=== PATIENT | female | born 1990 | race Caucasian/White ===

== ENCOUNTER 2018-10-11 06:56 | Emergency (ER) | payer OTHER ==
[2018-10-11 07:01] VITALS: BP 118/78
[2018-10-11] MEDS ORDERED: MECLIZINE HCL 25 MG TABLET PO ONE (07:06)
--- NOTE | 2018-10-11 07:23 | ER Document Report ---
HPI - HPI Time Seen by Provider: 10/11/18 07:20 Pain Level: 3 Notes: Patient is a 27-year-old female with a history of allergies who presents to the ED complaining of nasal congestion and 2 episodes of dizziness this morning. Patient states that she does have vertigo on occasion when she has upper respiratory infections and sinus symptoms. Patient states that the dizziness has since resolved. She does take Claritin once daily. Patient states that pushing on her sinuses actually improve her symptoms. She is otherwise eating and drinking without any difficulties. She is urinating normally. No other concerns or complaints. Denies any headache, fever, head injury, neck pain, changes in vision/speech/mentation/hearing, sore throat, chest pain, palpitations, syncope, cough, shortness of breath, wheeze, dyspnea, abdominal pain, nausea/vomiting/diarrhea, urinary retention, dysuria, hematuria, loss of control of bowel or bladder, numbness/tingling, saddle anesthesia, muscle paralysis/weakness, or rash. - ROS Systems Reviewed and Negative: Yes All other systems reviewed and negative - REPRODUCTIVE Reproductive: DENIES: : Past Medical History - Social History Smoking Status: Never Smoker Family History: Arthritis, CAD, CVA, DM, Hyperlipidemia, Hypertension, Malignancy, Thyroid Disfunction - Immunizations Immunizations up to date: No Hx Diphtheria, Pertussis, Tetanus Vaccination: No Hx Pneumococcal Vaccination: 07/18/14 Vertical Provider Document - CONSTITUTIONAL Agree With Documented VS: Yes Notes: PHYSICAL EXAMINATION: GENERAL: Well-appearing, well-nourished and in no acute distress. A&Ox4. Answers questions appropriately. HEAD: Atraumatic, normocephalic. Non-tender. EYES: Pupils equal round and reactive to light, extraocular movements intact, sclera anicteric, conjunctiva are normal. No nystagmus. vis akbar intact. ENT: EAC clear b/l. TM's intact b/l without erythema, fluid, or perforation. Nares patent and without discharge, mildly inflamed. oropharynx clear without exudates. No tonsilar hypertrophy or erythema. Moist mucous membranes. No sinus tenderness--actually "felt really good." NECK: Normal range of motion, supple without lymphadenopathy. No rigidity/meningismus. No midline tenderness. LUNGS: Breath sounds clear to auscultation bilaterally and equal. No wheezes rales or rhonchi. HEART: Regular rate and rhythm without murmurs, rubs, gallops. ABDOMEN: Soft, nontender, nondistended abdomen. No guarding, no rebound. Normal bowel sounds present. No CVA tenderness bilaterally. Musculoskeletal: Ext's b/l: FROM to passive/active. Strength 5+/5. No deficits noted. No bony tenderness of extremities. Extremities: No cyanosis, clubbing, or edema b/l. Peripheral pulses 2+. Capillary refill less than 2 seconds. NEUROLOGICAL: NIH 0. GCS 15. Cranial nerves grossly intact. Normal speech, normal gait. Normal sensory, motor exams. Reflexes 2+ b/l. ZOË's negative. Pronator drift negative. Heel/felton, finger/nose wnl. Rhomberg neg. PSYCH: Normal mood, normal affect. SKIN: Warm, Dry, normal turgor, no rashes or lesions noted. - INFECTION CONTROL TRAVEL OUTSIDE OF THE [place] IN LAST 30 DAYS: No Course - Re-evaluation Re-evalutation: 10/11/18 07:26 Patient is an afebrile, well-hydrated, 27-year-old female who presents to the ED with acute URI, suspect viral, and the two episodes of vertigo could be related to the URI vs possible labyrinthitis. Vitals are stable. PE is otherwise unremarkable. No labs or imaging warranted at this time based on H&P. Patient has no significant cardiopulmonary or immunocompromised medical conditions. Patient's lungs are clear to auscultation bilaterally without tachycardia, hypoxia, or tachypnea. Patient is tolerating p.o. without any difficulties. Meclizine given PO. Low suspicion for any acute intracranial pathology, menieres, meningitis, sepsis, peritonsillar/pharyngeal abscess, respiratory compromise, severe dehydration, or other emergent systemic condition at this time. Patient is aware this condition can change from initial presentation and she needs to monitor symptoms closely. Conservative measures otherwise for symptoms. Recheck with your PCM in 3-5 days. Return to the ED with any worsening/concerning symptoms otherwise as reviewed in discharge. Patient is in agreement. - Vital Signs Vital signs: Temp Pulse Resp BP Pulse Ox 98.4 F 97 14 118/78 97 10/11/18 06:57 10/11/18 06:57 10/11/18 06:57 10/11/18 06:57 10/11/18 06:57 Discharge - Discharge Clinical Impression: Acute URI Condition: Stable Disposition: HOME, SELF-CARE Instructions: Upper Respiratory Illness ([facility]) Additional Instructions: Maintain adequate fluid intake Take meds as directed tylenol/ibuprofen as needed over the counter cold medication as needed for symptoms (generic Afrin and mucinex with nasal saline rinses)- dramamine/meclizine for dizziness Humidified air may help Wash your hands regularly Wear a mask when coughing F/u: with your PCM in 3-5 days for a recheck Return to the ED with any fever, worsening pain, chest pain, palpitations, syncope, worsening BLAKE, neck pain/stiffness, shortness of breath, wheezing, drooling, trouble swallowing/breathing, abdominal pain, n/v/d, rash, or worsening/concerning symptoms otherwise. Referrals: [facility] [Provider Group] - Follow up as needed [facility] [Provider Group] - Follow up as needed
== END 2018-10-11 07:27 | disposition home or self-care (01) ==
LOC: ER 06:56
DX: J06.9 Acute upper respiratory infection, unspecified (principal); R09.81 Nasal congestion; R42 Dizziness and giddiness
CPT/HCPCS: 99283

== ENCOUNTER 2018-11-28 09:42 | Emergency (ER) | payer OTHER ==
[2018-11-28 09:46] VITALS: BP 145/93
--- NOTE | 2018-11-28 10:19 | ER Document Report ---
HPI - HPI Time Seen by Provider: 11/28/18 10:13 Pain Level: 3 Notes: Patient is a 28-year-old female with no significant past medical history who presents to the emergency department complaining of pain to her right superior auricle began over the last day. Patient states that she woke up with some redness and associated pain with some scant drainage in the crease superiorly this morning. Patient states that she does have an ear piercing in that area, but has not used it in several years. She is otherwise eating and drinking without difficulty. Denies any trauma. No other recent illness. Patient was seen at an urgent care and was apparently sent here for evaluation of possible cauliflower ear. Denies any headache, fever, head injury, neck pain, changes in vision/speech/mentation/hearing, URI, sore throat, chest pain, palpitations, syncope, cough, shortness of breath, wheeze, dyspnea, abdominal pain, nausea/vomiting/diarrhea, urinary retention, dysuria, hematuria, or rash. - ROS Systems Reviewed and Negative: Yes All other systems reviewed and negative - REPRODUCTIVE Reproductive: DENIES: : Past Medical History - Social History Smoking Status: Never Smoker Family History: Arthritis, CAD, CVA, DM, Hyperlipidemia, Hypertension, Malignancy, Thyroid Disfunction Renal/ Medical History: Denies: Hx Peritoneal Dialysis - Immunizations Immunizations up to date: No Hx Diphtheria, Pertussis, Tetanus Vaccination: No Hx Pneumococcal Vaccination: 07/18/14 Vertical Provider Document - CONSTITUTIONAL Agree With Documented VS: Yes Notes: PHYSICAL EXAMINATION: GENERAL: Well-appearing, well-nourished and in no acute distress. HEAD: Atraumatic, normocephalic. EYES: Pupils equal round and reactive to light, extraocular movements intact, sclera anicteric, conjunctiva are normal. ENT: EAC clear b/l. TM's intact b/l without erythema, fluid, or perforation. Rt auricle has mild erythema superiorly without any anatomic changes due to swelling. No hematoma. No abscess. + mild associated tenderness w/o any discharge noted. No streaks or mastoid tenderness. Nares patent and without discharge. oropharynx clear without exudates. No tonsilar hypertrophy or erythema. Moist mucous membranes. No sinus tenderness. NECK: Normal range of motion, supple without lymphadenopathy LUNGS: Breath sounds clear to auscultation bilaterally and equal. No wheezes rales or rhonchi. HEART: Regular rate and rhythm without murmurs, rubs, gallops. Extremities: No cyanosis, clubbing, or edema b/l. Peripheral pulses 2+. Capillary refill less than 3 seconds. NEUROLOGICAL: Cranial nerves grossly intact. Normal speech, normal gait. PSYCH: Normal mood, normal affect. SKIN: see above. - INFECTION CONTROL TRAVEL OUTSIDE OF THE [place] IN LAST 30 DAYS: No Course - Re-evaluation Re-evalutation: 11/28/18 10:16 Patient is an afebrile, well-hydrated, 28-year-old female who presents the emergency department with a mild appearing cellulitis to the right auricle based on her H&P today. Reassured patient that I have no suspicion of cauliflower ear at this time. Vitals are acceptable. PE is otherwise unremarkable. Patient is nontoxic-appearing and is tolerating p.o. without difficulty. Patient has an allergy to Bactrim. I did review antibiotic choice with Dr. Hurd who is in agreement with terrence. Low suspicion for any sepsis, meningitis, severe d ehydration, respiratory compromise, mastoiditis, or other systemic emergent condition at this time. Patient is aware that condition can change from initial presentation and she needs to monitor symptoms closely and seek medical attention with any acute changes. Recheck with your PCM in 3-5 days. Consider consult with ENT. Return to the ED with any other worsening/concerning symptoms. Patient is in agreement. No h/o MRSA. - Vital Signs Vital signs: Temp Pulse Resp BP Pulse Ox 99.2 F 74 16 145/93 H 100 11/28/18 09:45 11/28/18 09:45 11/28/18 09:45 11/28/18 09:45 11/28/18 09:45 Discharge - Discharge Clinical Impression: Ear infection Condition: Stable Disposition: HOME, SELF-CARE Instructions: Doxycycline ([facility]) Additional Instructions: Keep the skin clean Wash with soap and water Tylenol/ibuprofen if needed Triple antibiotic ointment daily Take medication as directed Monitor for any worsening symptoms Recheck with your PCM in 3-5 days Consider consult with ENT for ongoing/worsening symptoms Return to the ED with any worsening symptoms and/or development of fever, headache, chest pain, palpitations, syncope, shortness of breath, trouble breathing, abdominal pain, n/v/d, abscess, purulent discharge, red streaks, worsening swelling, or other worsening symptoms that are concerning to you. Prescriptions: Doxycycline Hyclate 100 mg PO BID #20 capsule Forms: Elevated Blood Pressure, Return to Work Referrals: ADRIANNE CHEATHAM DO [ASSOCIATE] - Follow up as needed
== END 2018-11-28 10:29 | disposition home or self-care (01) ==
LOC: ER 09:42
DX: H60.11 Cellulitis of right external ear (principal); H92.01 Otalgia, right ear
CPT/HCPCS: 99282

== ENCOUNTER 2018-12-24 05:53 | Emergency (ER) | payer OTHER ==
[2018-12-24] MEDS ORDERED: HYDROXYZINE PAMOATE 25 MG CAPSULE (4 CAP/ER DISP) PO PRN (07:14)
--- NOTE | 2018-12-24 07:17 | ER Document Report ---
ED General - General Chief Complaint: Anxiety Stated Complaint: PANIC ATTACKS Time Seen by Provider: 12/24/18 07:01 Mode of Arrival: Ambulatory Information source: Patient Notes: Patient is a 28-year-old female with a history of anxiety who presents to the ER today for not being able to sleep for the past 2 days because her "brain just will not shut off." She states she has a lot of stress going on at work and also has 4 children at home and just feels "overwhelmed." She denies any suicidal or homicidal. She admits to some palpitations and chest tightness, feeling like she is short of breath but states that she has had this feeling with panic attacks before. She states that she never wanted to be on any medication for anxiety so she is never tried anything for panic attacks, never been prescribed anything. She has no cardiac history but admits to family history of cardiac disease. She does not smoke. TRAVEL OUTSIDE OF THE [place] IN LAST 30 DAYS: No - Related Data Allergies/Adverse Reactions: trimethoprim [From Septra] Allergy (Mild, Verified 12/24/18 06:41) benzocaine [From Hurricaine] Adverse Reaction (Severe, Verified 12/24/18 06:41) Swelling of Throat pertussis vaccine,fluid [Pertussis Vaccine,Fluid] Adverse Reaction (Severe, Verified 12/24/18 06:41) Swelling of Throat sulfamethoxazole [From Septra] Adverse Reaction (Severe, Verified 12/24/18 06:41) Swelling of Throat Past Medical History - General Information source: Patient - Social History Smoking Status: Never Smoker Frequency of alcohol use: Occasional Drug Abuse: None Family History: Arthritis, CAD, CVA, DM, Hyperlipidemia, Hypertension, Malignancy, Thyroid Disfunction Patient has suicidal ideation: No Patient has homicidal ideation: No Renal/ Medical History: Denies: Hx Peritoneal Dialysis - Immunizations Immunizations up to date: No Hx Diphtheria, Pertussis, Tetanus Vaccination: No Hx Pneumococcal Vaccination: 07/18/14 Review of Systems - Review of Systems Constitutional: No symptoms reported EENT: No symptoms reported Cardiovascular: No symptoms reported Respiratory: No symptoms reported Gastrointestinal: No symptoms reported Genitourinary: No symptoms reported Female Genitourinary: No symptoms reported Musculoskeletal: No symptoms reported Skin: No symptoms reported Hematologic/Lymphatic: No symptoms reported Neurological/Psychological: See HPI Physical Exam - Vital signs Vitals: Temp Pulse Resp BP Pulse Ox 98.7 F 113 H 22 H 143/96 H 98 12/24/18 05:56 12/24/18 05:56 12/24/18 05:56 12/24/18 05:56 12/24/18 05:56 - Notes Notes: PHYSICAL EXAMINATION: GENERAL: Anxious appearing, but in no acute distress. HEAD: Atraumatic, normocephalic. EYES: Pupils equal round and reactive to light, extraocular movements intact, sclera anicteric, conjunctiva are normal. ENT: Airway patent, ear canals without erythema or foreign body, TMs pearly ferro with good bony landmarks, nares patent, oropharynx clear without exudates. Moist mucous membranes. NECK: Normal range of motion, supple without lymphadenopathy LUNGS: CTAB and equal. No wheezes rales or rhonchi. HEART: Regular rate and rhythm without murmurs ABDOMEN: Soft, no tenderness. No guarding, no rebound BACK: no vertebral tenderness, normal ROM GI/: no CVA tenderness EXTREMITIES: Normal range of motion, no pitting edema. No cyanosis. NEUROLOGICAL: Cranial nerves grossly intact. Normal sensory/motor exams. PSYCH: Normal mood, normal affect. SKIN: Warm, Dry, normal turgor, no rashes or lesions noted Course - Re-evaluation Re-evalutation: 12/24/18 11:11 EKG without evidence of ischemia or abnormal that he, patient will be given Vistaril for her anxiety, she is stable for discharge to follow-up with mental health that she actually has an appointment with on the of this month. - Vital Signs Vital signs: Temp Pulse Resp BP Pulse Ox 98.7 F 88 16 123/74 99 12/24/18 05:56 12/24/18 08:28 12/24/18 08:28 12/24/18 08:28 12/24/18 08:28 Discharge - Discharge Clinical Impression: Anxiety Condition: Stable Disposition: HOME, SELF-CARE Instructions: Anxiety ([facility]) Additional Instructions: Return immediately for any new or worsening symptoms. Follow up with primary care provider, call tomorrow to make followup appointment.
[2018-12-24 08:28] VITALS: BP 123/74
--- NOTE | 2018-12-24 12:35 | EKG REPORT ---
SEVERITY:- NORMAL ECG - SINUS RHYTHM : Confirmed by: Arelis Li MD 24-Dec-2018 12:35:01
== END 2018-12-24 08:28 | disposition home or self-care (01) ==
LOC: ER 05:53
DX: F41.9 Anxiety disorder, unspecified (principal); R00.2 Palpitations; R07.89 Other chest pain; R06.02 Shortness of breath; Z82.49 Family history of ischemic heart disease and other diseases of the circulatory system; Z88.1 Allergy status to other antibiotic agents
CPT/HCPCS: 93005; 99283; 93010; J3490

== ENCOUNTER 2020-06-20 13:25 | Emergency (ER) | payer OTHER ==
--- NOTE | 2020-06-20 13:58 | ER Document Report ---
ED Medical Screen (RME) - General Chief Complaint: High Blood Pressure Stated Complaint: BLOOD PRESSURE ISSUES Time Seen by Provider: 06/20/20 13:43 Mode of Arrival: Ambulatory Information source: Patient Notes: 29-year-old female presented to ED for complaint of elevated blood pressure at the doctor's office. Patient's blood pressure using manual cuff was 142/88 in the right arm. More concerning was her apical pulse was 126. With the pulse ox machine it was also 126. Patient is alert oriented respirations regular nonlabored speaking in full sentences. She states she does feel her pulse jumping in her chest. She is not having pain she can just feel her pulse in her chest. I have greeted and performed a rapid initial assessment of this patient. A comprehensive ED assessment and evaluation of the patient, analysis of test results and completion of medical decision making process will be conducted by an additional ED providers. TRAVEL OUTSIDE OF THE [place] IN LAST 30 DAYS: No - Related Data Allergies/Adverse Reactions: trimethoprim [From Septra] Allergy (Mild, Verified 12/24/18 06:41) benzocaine [From Hurricaine] Adverse Reaction (Severe, Verified 12/24/18 06:41) Swelling of Throat pertussis vaccine,fluid [Pertussis Vaccine,Fluid] Adverse Reaction (Severe, Verified 12/24/18 06:41) Swelling of Throat sulfamethoxazole [From Septra] Adverse Reaction (Severe, Verified 12/24/18 06:41) Swelling of Throat Past Medical History - Social History Chew tobacco use (# tins/day): No Frequency of alcohol use: None Drug Abuse: None Renal/ Medical History: Denies: Hx Peritoneal Dialysis - Immunizations Immunizations up to date: No Hx Diphtheria, Pertussis, Tetanus Vaccination: No Physical Exam - Vital signs Vitals: Temp Pulse Resp BP Pulse Ox 98.1 F 98 16 162/98 H 100 06/20/20 13:31 06/20/20 13:31 06/20/20 13:31 06/20/20 13:31 06/20/20 13:31 Course - Vital Signs Vital signs: Temp Pulse Resp BP Pulse Ox 98.1 F 98 16 162/98 H 100 06/20/20 13:31 06/20/20 13:31 06/20/20 13:31 06/20/20 13:31 06/20/20 13:31
[2020-06-20 14:34] LABS: ABSOLUTE EOSINOPHILS # (AUTO) 0.1 10^3/uL (0.0-0.6); ABSOLUTE MONOCYTES (AUTO) 0.5 10^3/uL (0.1-1.4); ABSOLUTE NEUT (AUTO) 5.1 10^3/uL (1.7-8.2); BASOPHILS % (AUTO) 0.3 % (0-2); EOSINOPHILS % (AUTO) 0.8 % (0-6); HEMATOCRIT 44.4 % (36.0-47.0); HEMOGLOBIN 15.7 g/dL (12.0-15.5); MEAN CORPUSCULAR HGB CONC 35.2 g/dL (32.0-36.0); MEAN CORPUSCULAR VOLUME 91 fl (80-97); MONOCYTES % (AUTO) 6.4 % (3-13); PLATELET COUNT 316 10^3/uL (150-450); RED BLOOD COUNT 4.89 10^6/uL (3.72-5.28); SEGMENTED NEUTROPHILS % (AUTO) 66.5 % (42-78); TOTAL CELLS COUNTED % (AUTO) 100 %; WHITE BLOOD COUNT 7.7 10^3/uL (4.0-10.5)
[2020-06-20 14:54] LABS: ALKALINE PHOSPHATASE 39 U/L (38-126); ANION GAP 11 (5-19); ASPARTATE AMINO TRANSFERASE 24 U/L (14-36); BILIRUBIN,DIRECT 0.4 mg/dL (0.0-0.4); BILIRUBIN,TOTAL 0.5 mg/dL (0.2-1.3); BLOOD UREA NITROGEN 10 mg/dL (7-20); CARBON DIOXIDE 26 mmol/L (22-30); CHLORIDE 102 mmol/L (98-107); CREATINE KINASE 67 U/L (30-135); GLUCOSE 112 mg/dL (75-110); POTASSIUM 4.2 mmol/L (3.6-5.0); TOTAL PROTEIN 8.4 g/dL (6.3-8.2)
[2020-06-20 14:55] LABS: PROTHROMBIN TIME 11.3 SEC (11.4-15.4)
[2020-06-20 14:56] LABS: PARTIAL THROMBOPLASTIN TIME 27.7 SEC (23.5-35.8)
--- NOTE | 2020-06-20 15:07 | ER Document Report ---
ED Medical Screen (RME) - General Chief Complaint: High Blood Pressure Stated Complaint: BLOOD PRESSURE ISSUES Time Seen by Provider: 06/20/20 13:43 Mode of Arrival: Ambulatory Information source: Patient Notes: 06/20/20 13:42 - ED Nursing Note by ALDA AC Num: [id number] : 1990 Patient Age: 29 Pt ambulates into ER today for c/o high blood pressure. Pt states that she went to Urgent care and her bp was elevated 157/127 manual, they advised her to come to the ER. Pt states that she has a family history of hypertension and heart disease. Pt denies any chest pain, headache, dizziness. Pt states that she feels SOB when waking up in the morning as well as palpitations. Pt aaox4, skin warm and dry, respirations e/u, speaking in clear and coherent sentence. Pt noted to have high HR of 126. ED Medical Screen (Mark marks) - General Chief Complaint: High Blood Pressure Stated Complaint: BLOOD PRESSURE ISSUES Time Seen by Provider: 06/20/20 13:43 Mode of Arrival: Ambulatory Information source: Patient Notes: 29-year-old female presented to ED for complaint of elevated blood pressure at the doctor's office. Patient's blood pressure using manual cuff was 142/88 in the right arm. More concerning was her apical pulse was 126. With the pulse ox machine it was also 126. Patient is alert oriented respirations regular nonlabored speaking in full sentences. She states she does feel her pulse jumping in her chest. She is not having pain she can just feel her pulse in her chest. MY NOTES 29-year-old female mother of 3 children ages 5-year-old 7-year-old and 9-year-old all girls at home. Patient reports she been on control Alyacen norethindrone and estradiol for 1 year. Patient noticed several days ago she was having left lateral neck pain associated with a blowing sound in her left ear. She does have a seasonal allergies. She could feel with a blowing associated with her heartbeat. She went to urgent care and they looked in her ear and did not find any ear infection but did notice that she had high blood pr essure and she had tachycardia. Patient has been complaining of dyspnea on exertion after walking 10 feet and taking care of her 3 children. Her mother has a history of PVCs and is on medication and father's has hypertension and on medication. Her sister has Chaya's thyroiditis. She advises she has picked her family well. No one in the family has any history of pulmonary embolism or DVT. TRAVEL OUTSIDE OF THE [place] IN LAST 30 DAYS: No - HPI Onset: Last week Associated Symptoms: Dizzy/lightheaded, Shortness of breath, Other - tachycardia Exacerbated by: Movement, Deep breathing Relieved by: Remaining still Similar symptoms previously: No Recently seen / treated by doctor: No - Related Data Allergies/Adverse Reactions: trimethoprim [From Septra] Allergy (Mild, Verified 12/24/18 06:41) benzocaine [From Hurricaine] Adverse Reaction (Severe, Verified 12/24/18 06:41) Swelling of Throat pertussis vaccine,fluid [Pertussis Vaccine,Fluid] Adverse Reaction (Severe, Verified 12/24/18 06:41) Swelling of Throat sulfamethoxazole [From Junra] Adverse Reaction (Severe, Verified 12/24/18 06:41) Swelling of Throat Past Medical History - General Information source: Patient - Social History Cigarette use (# per day): No Chew tobacco use (# tins/day): No Frequency of alcohol use: None Drug Abuse: None Lives with: Family Family history: Reviewed & Not Pertinent Renal/ Medical History: Denies: Hx Peritoneal Dialysis - Immunizations Immunizations up to date: No Hx Diphtheria, Pertussis, Tetanus Vaccination: No Review of Systems - Review of Systems Constitutional: See HPI, Weakness EENT: See HPI, Ear pain, Sinus pressure Cardiovascular: See HPI, Palpitations, Heart racing, Orthopnea, Dyspnea, Dizziness Respiratory: See HPI, Short of breath Gastrointestinal: No symptoms reported Genitourinary: No symptoms reported Female Genitourinary: No symptoms reported Musculoskeletal: No symptoms reported Skin: No symptoms reported Hematologic/Lymphatic: No symptoms reported Neurological/Psychological: See HPI, Weakness Physical Exam - Vital signs Vitals: Temp Pulse Resp BP Pulse Ox 98.1 F 98 16 162/98 H 100 06/20/20 13:31 06/20/20 13:31 06/20/20 13:31 06/20/20 13:31 06/20/20 13:31 Interpretation: Hypertensive, Tachycardic - HEENT Head: Normocephalic, Atraumatic Eyes: Normal Cornea: Normal Extraocular movements intact: Yes Eyelashes: Normal Pupils: PERRL External canal: Normal Tympanic membrane: Serous effusion - L>R Mucous membranes: Normal Pharynx: Normal Neck: Normal, Other - no bruits - Respiratory Respiratory status: No respiratory distress Chest status: Nontender Breath sounds: Normal Chest palpation: Normal - Cardiovascular Rhythm: Tachycardia Heart sounds: Normal auscultation Murmur: No - Abdominal Inspection: Normal Distension: No distension Bowel sounds: Normal Tenderness: Nontender Organomegaly: No organomegaly - Rectal Hemorrhoids: Other - deferred - Genitourinary Bimanuel exam: Other - deferred - Back Back: Normal - Extremities General upper extremity: Normal inspection General lower extremity: Normal inspection - Neurological Neuro grossly intact: Yes Cognition: Normal Orientation: AAOx4 [place] Coma Scale Eye Opening: Spontaneous Shahbaz Coma Scale Verbal: Oriented [place] Coma Scale Motor: Obeys Commands Shahbaz Coma Scale Total: 15 Speech: Normal Motor strength normal: LUE, RUE, LLE, RLE Sensory: Normal - Psychological Associated symptoms: Normal affect - Skin Skin Temperature: Warm Skin Moisture: Dry Course - Vital Signs Vital signs: Temp Pulse Resp BP Pulse Ox 98.1 F 98 21 H 125/93 H 99 06/20/20 13:31 06/20/20 13:31 06/20/20 17:01 06/20/20 17:00 06/20/20 17:01 - Laboratory Result Diagrams: 06/20/20 14:10 06/20/20 14:10 Laboratory results interpreted by me: 06/20/20 06/20/20 06/20/20 14:10 14:10 14:10 Hgb 15.7 H PT 11.3 L Glucose 112 H Total Protein 8.4 H Critical Care Note - Critical Care Note Comments: I discussed this case with Dr. Crump risk management internship and he will arrange for her to be seen by one of his staff. I discussed the findings with the patient and she appeared to understand. She did receive IV labetalol 2.5 milligrams and she felt somewhat relieved as far as tachycardia but then had a anxiety attack. Doctor's Discharge - Discharge Clinical Impression: Tachycardia, GARRIDO (dyspnea on exertion), SOB (shortness of breath) on exertion, Uses control Condition: Good Instructions: Beta Blockers ([facility]), High Blood Pressure, Requiring Treatment ([facility]) Additional Instructions: We advised following up with Dr. Crump and with PMD. Advised taking baby aspirin 81 mg daily. We advised stopping control pills since your has had a vasectomy already. Your CT scan was negative today. Your thyroid test was negative today but because of family history will need follow-up for these as well. We advised taking the blood pressure medicine and Xanax at nighttime. Also we advised no tea or coffee or chocolate until evaluated by risk management internship. We also advise getting a blood pressure cuff and obtaining blood pressures on a twice daily regime. Write down the results on a calendar so you can present this to your risk management internship or doctor. You may also need a work-up for VMA or other adrenal products with a 24-hour urine. Prescriptions: Alprazolam [Xanax 0.5 mg Tablet] 0.5 mg PO QHS #15 tab Atenolol [Tenormin] 12.5 mg PO HSP PRN #15 tablet PRN Reason: Referrals: CARMEL CRUMP MD [ACTIVE PROVISIONAL STAFF] - Follow up as needed
--- NOTE | 2020-06-20 15:53 | RADIOLOGY REPORT (SQ) ---
EXAM DESCRIPTION: CHEST 2 VIEWS IMAGES COMPLETED DATE/TIME: 06/20/2020 3:36 pm REASON FOR STUDY: apical pulse 126 COMPARISON: None. TECHNIQUE: Frontal and lateral radiographic views of the chest acquired. NUMBER OF VIEWS: Two view. LIMITATIONS: None. FINDINGS: LUNGS AND PLEURA: No opacities, masses or pneumothorax. No pleural effusion. MEDIASTINUM AND HILAR STRUCTURES: No masses or contour abnormalities. HEART AND VASCULAR STRUCTURES: Heart normal size. No evidence for failure. BONES: No acute findings. HARDWARE: None in the chest. OTHER: No other significant finding. IMPRESSION: NO SIGNIFICANT RADIOGRAPHIC FINDING IN THE CHEST. TECHNICAL DOCUMENTATION: JOB ID: [id number] 2010 [email or web address] All Rights Reserved Reading location - IP/workstation name: [email or web address]
--- NOTE | 2020-06-20 17:00 | RADIOLOGY REPORT (SQ) ---
EXAM DESCRIPTION: CTA CHEST IMAGES COMPLETED DATE/TIME: 06/20/2020 3:22 pm REASON FOR STUDY: tachycardia. Shortness of breath. COMPARISON: None. TECHNIQUE: CT scan of the chest performed using helical scanning technique with dynamic intravenous contrast injection. Images reviewed with lung, soft tissue and bone windows. Reconstructed coronal and sagittal MPR images reviewed. Additional 3 dimensional post-processing performed to develop Maximal Intensity Projection images (CA P). All images stored on PACS. All CT scanners at this facility use dose modulation, iterative reconstruction, and/or weight based d osing when appropriate to reduce radiation dose to as low as reasonably achievable (ALARA). [facility]: Dose Right [facility]: CareDose [facility]: Dose Right [facility]: Teradose 4D [facility]: [employer] CONTRAST TYPE AND DOSE: 75 mL Omnipaque 350 Contrast bolus adequate for pulmonary arteries and aorta. RENAL FUNCTION: GFR > 60. RADIATION DOSE: CT Rad equipment meets quality standard of care and radiation dose reduction techniq ues were employed. CTDIvol: 3.2 - 29.8 mGy. DLP: 1251 mGy-cm. . LIMITATIONS: None. FINDINGS: LUNGS AND PLEURA: No masses, infiltrates, or pneumothorax. No pleural effusions or pleura l calcifications. AORTA AND GREAT VESSELS: No aneurysm. No dissection. HEART: No pericardial effusion. No significant coronary artery calcifications. PULMONARY ARTERIES: No emboli visualized in the main pulmonary arteries or the segmental branches. HILAR AND MEDIASTINAL STRUCTURES: No identified masses or abnormal nodes. HARDWARE: None in the chest. UPPER ABDOMEN: No significant findings. Limited exam. THYROID AND OTHER SOFT TISSUES: No masses. No adenopathy. BONES: No acute or significant finding. 3D MIPS: Confirm above findings. OTHER: No other significant finding. IMPRESSION: 1. No pulmonary embolism. 2. No aortic dissection. 3. No acute pulmonary disease. COMMENT: Quality ID # 436: Final reports with documentation of one or more dose reduction techniques (e.g., Automated exposure control, adjustment of the mA and/or kV according to patient size, use of iterative reconstruction technique) TECHNICAL DOCUMENTATION: JOB ID: [id number] 2010 [employer]- All Rights Reserved Reading location - IP/workstation name: [email or web address]
--- NOTE | 2020-06-20 17:02 | RADIOLOGY REPORT (SQ) ---
EXAM DESCRIPTION: CT SOFT TISSUE NECK WITH IMAGES COMPLETED DATE/TIME: 06/20/2020 3:22 pm REASON FOR STUDY: tachycardia COMPARISON: None. TECHNIQUE: Post IV contrasted scanning from skull base through lung apices with review of bone, soft tissue and lung windows. Reconstructed coronal and sagittal MPR images reviewed. All images stored on PACS. All CT scanners at this facility use dose modulation, iterative reconstruction, and/or weight based d osing when appropriate to reduce radiation dose to as low as reasonably achievable (ALARA). [facility]: Dose Right [facility]: CareDose [facility]: Dose Right [facility]: Teradose 4D [facility]: [employer] CONTRAST TYPE AND DOSE: contrast/concentration: Isovue 350.00 mmol/ml; Total Contrast Delivered: 75. 0 ml; Total Saline Delivered: 55.0 ml RENAL FUNCTION: GFR > 60. RADIATION DOSE: . LIMITATIONS: None. FINDINGS: SKULL BASE: Intact. MAJOR SALIVARY GLANDS: No solid or cystic masses. No inflammatory changes. LYMPHADENOPATHY: No adenopathy. MUCOSAL MASSES OR ASYMMETRY: No mucosal masses or asymmetry. LARYNX/CORDS: No abnormal findings. VASCULAR STRUCTURES: The major vessels are patent. LUNG APICES: Clear. BONES: Intact. THYROID: Normal size. No masses. PARANASAL SINUSES: Clear. OTHER: No other significant finding. IMPRESSION: NO SIGNIFICANT FINDING IN THE SOFT TISSUES OF THE NECK. TECHNICAL DOCUMENTATION: JOB ID: [id number] Quality ID # [id number]: Final reports with documentation of one or more dose reduction techniques (e.g., Au tomated exposure control, adjustment of the mA and/or kV according to patient size, use of iterative reconstruction technique) 2010 [employer]- All Rights Reserved Reading location - IP/workstation name: [email or web address]
--- NOTE | 2020-06-20 17:07 | RADIOLOGY REPORT (SQ) ---
EXAM DESCRIPTION: CT HEAD WITHOUT IMAGES COMPLETED DATE/TIME: 06/20/2020 4:55 pm REASON FOR STUDY: tachycardia COMPARISON: None. TECHNIQUE: Axial images acquired through the brain without intravenous contrast. Images reviewed wi th bone, brain and subdural windows. Additional sagittal and coronal reconstructions were generated. Images stored on PACS. All CT scanners at this facility use dose modulation, iterative reconstruction, and/or weight based d osing when appropriate to reduce radiation dose to as low as reasonably achievable (ALARA). [facility]: Dose Right [facility]: CareDose [facility]: Dose Right [facility]: Teradose 4D [facility]: [employer] RADIATION DOSE: mGy. LIMITATIONS: None. FINDINGS: VENTRICLES: Normal size and contour. CEREBRUM: No masses. No hemorrhage. No midline shift. No evidence for acute infarction. Normal gra y/white matter differentiation. No areas of low density in the white matter. CEREBELLUM: No masses. No hemorrhage. No alteration of density. No evidence for acute infarction. EXTRAAXIAL SPACES: No fluid collections. No masses. ORBITS AND GLOBE: No intra- or extraconal masses. Normal contour of globe without masses. CALVARIUM: No fracture. PARANASAL SINUSES: No fluid or mucosal thickening. SOFT TISSUES: No mass or hematoma. OTHER: No other significant finding. IMPRESSION: NORMAL BRAIN CT WITHOUT CONTRAST. EVIDENCE OF ACUTE STROKE: NO. COMMENT: Quality ID # 436: Final reports with documentation of one or more dose reduction techniques (e.g., Automated exposure control, adjustment of the mA and/or kV according to patient size, use of iterative reconstruction technique) TECHNICAL DOCUMENTATION: JOB ID: [id number] 2010 [employer]- All Rights Reserved Reading location - IP/workstation name: [email or web address]
[2020-06-20] MEDS ORDERED: LABETALOL HCL INJ 20 MG/4 ML DISP.SYRIN IV ONE (17:09)
[2020-06-20 18:27] VITALS: BP 139/102
--- NOTE | 2020-06-20 20:24 | EKG REPORT ---
SEVERITY:- ABNORMAL ECG - SINUS TACHYCARDIA BIATRIAL ABNORMALITIES NONSPECIFIC T ABNORMALITIES, INFERIOR LEADS : Confirmed by: Eyal Yarbrough MD 20-Jun-2020 20:23:22
== END 2020-06-20 18:20 | disposition home or self-care (01) ==
LOC: ER 13:25
DX: R00.0 Tachycardia, unspecified (principal); F41.9 Anxiety disorder, unspecified; R06.02 Shortness of breath; R00.2 Palpitations; J30.2 Other seasonal allergic rhinitis; M54.2 Cervicalgia; R53.1 Weakness; R06.01 Orthopnea; R42 Dizziness and giddiness; I10 Essential (primary) hypertension; Z79.3 Long term (current) use of hormonal contraceptives; Z88.1 Allergy status to other antibiotic agents; Z82.49 Family history of ischemic heart disease and other diseases of the circulatory system; Z83.49 Family history of other endocrine, nutritional and metabolic diseases
CPT/HCPCS: 93005; 99285; 96374; 36415; 84439; 82550; 83735; 84443; 85025; 85610; 85730; 80053; 84484; 71046; 70450; 70491; 71275; 93010; J3490